=== PATIENT | female | born 1990 | race Caucasian/White ===

== ENCOUNTER 2020-11-30 16:00 | Emergency (ER) | payer OTHER ==
[~2020-11-30] VITALS: Ht 165.1 cm; Wt 123.8 kg
[~2020-11-30 16:00] MED LIST: CYMBALTA30 MG PO; FLEXERIL PO; IBUPROFEN 800800 MG PO; MEDROL DOSPAK21 TAB PO; METFORMIN 500500 MG PO; NORCO 5-325 TA1 EACH PO; RELAFEN500 MG PO; ZOFRAN ODT4 MG PO
[2020-11-30] MEDS ORDERED: BIRTH CONTROL (16:17)
[2020-11-30] MEDS ORDERED: NAPROSYN500 MG PO (16:27)
[2020-11-30] MEDS ORDERED: FLEXERIL PO (16:27)
[2020-11-30] MEDS ORDERED: PREDNISONE 20 M20 MG PO (16:27)
[2020-11-30 16:40] VITALS: BP 155/108
== END 2020-11-30 16:44 | disposition home or self-care (01) ==
LOC: M.ERS 16:00
DX: M62.830 Muscle spasm of back (principal); M43.6 Torticollis; M25.511 Pain in right shoulder; Z90.89 Acquired absence of other organs; Z98.890 Other specified postprocedural states; Z79.899 Other long term (current) drug therapy